=== PATIENT | male | born 1980 | race Caucasian/White ===

== ENCOUNTER 2016-12-17 16:24 | Emergency (ER) | payer BC ==
[~2016-12-17] VITALS: Ht 160 cm; Wt 60.5 kg
[~2016-12-17 16:24] MED LIST: NOHOMEMEDS
[2016-12-17 16:49] LABS: HEMATOCRIT 45.9 % (38.0-50.0); MCH 31.7 PG (29.0-34.0); MCHC 34.2 G/DL (30.0-36.0); MCV 92.5 FL (86-99); MEAN PLAT.VOLUME 9.9 uM^3 (9.0-12.4); PLATELET COUNT 269 K/uL (156-360); RBC DIS.WIDTH-CV 11.6 % (11.8-14.6); RBC DIS.WIDTH-SD 39.6 % (39-53); RED BLOOD COUNT 4.96 M/uL (4.00-5.50); WHITE BLOOD COUNT 6.4 K/uL (4.1-10.2)
[2016-12-17 16:57] LABS: CHLORIDE 104 mEq/L (99-109); POTASSIUM 4.3 mEq/L (3.7-5.4); SODIUM 140 mEq/L (136-147)
[2016-12-17 16:59] LABS: GLUCOSE 97 mg/dL (70-99)
[2016-12-17 17:00] LABS: ANION GAP 10 MEQ/L (2-14)
[2016-12-17 17:03] LABS: GFR ESTIMATE (CALCULATED) > 59 mL/min/
[2016-12-17 17:04] LABS: UREA NITROGEN (BUN) 25 mg/dL (9-23)
[2016-12-17 17:10] LABS: TROP-I INTERPRETATION NEGATIVE; TROPONIN-I < 0.01 ng/mL (0.0-0.30)
[2016-12-17 19:10] VITALS: BP 119/68
== END 2016-12-17 19:27 | disposition home or self-care (01) ==
LOC: EME 16:24
DX: R00.2 Palpitations (principal); F17.200 Nicotine dependence, unspecified, uncomplicated; G43.909 Migraine, unspecified, not intractable, without status migrainosus
CPT/HCPCS: 71020; 80048; 84443; 84484; 85027; 93005; 99281; 99284